=== PATIENT | female | born 1990 | race Two or more races ===

== ENCOUNTER 2017-01-13 13:38 | Emergency (ER) | payer OTHER ==
--- NOTE | ~2017-01-13 | CR63 ---
[facility]. [facility] A Service of [facility] & [facility] RADIOLOGY TEXT RESULTS PATIENT: OPHELIA PRESTON LOCATION: SED : [birth year] UNIT #: [id number] AGE: [address]: Nancy Quezada APRN SEX: F ORDER DR: [id number] [address] [address] [id number] MR#: [id number] Acc #: [id number] NAME: OPHELIA PRESTON : 1990 SEX: F STUDY DATE/TIME: 01/13/2017 13:34 UNIT: SED ROOM: STUDY DESCRIPTION: CR Chest 2 View Attending Physician: Nanyc Quezada A.P.R.N. Ordering Physician: Nancy Quezada A.P.R.N. Primary Care Physician: Tim Barraza M.D. MEDICAL IMAGING REPORT This report is preliminary unless electronic signature is present. EXAM PA and lateral radiograph of the chest, 01/13/17. HISTORY Cough, sinus congestion, ears stopped up one week duration. FINDINGS PA and lateral radiographs of the chest are presented. No comparisons. Heart and mediastinum are within normal limits in size and contour. The lungs are well inflated. There are some patchy linear densities at the left lung base adjacent to the diaphragm. This may represent atelectasis or mild pneumonitis. There is no dense airspace disease. No pleural effusion or pneumothorax and no suspicious nodule. The visualized bony structures unremarkable. Visualized upper abdomen unremarkable. Dictated by... Johnson Nieto M.D. THIS IS AN ELECTRONICALLY VERIFIED REPORT Johnson Nieto M.D. at 01/18/2017 6:37 PM CRISTINE/corrina TD: 01/13/2017 14:24 JOB #: [id number] MEDICAL IMAGING REPORT Page 1 of 1
[~2017-01-13 13:38] MED LIST: BACTRIM DS TABL1 TA1 PO; DELTASONE20 MG PO; DIFLUCAN PO; ERYTHROMYC3.5 GM OPT OS; FLAGYL250 M1 PO; HYDROCODON-ACE1 EAC7 PO; KEFLEX PO; MEDROL4 MG/DOSE- PO; NO MEDICATIONS; ROBAXIN500 MG PO; VICODIN 5/500 T1 TAB PO; VOLTAREN50 MG PO; VOLTAREN75 MG PO; ZIAGEN300 M1
[2017-01-13 14:01] LABS: INFLUENZA A NEG (NEG); INFLUENZA B NEG (NEG)
== END 2017-01-13 14:23 | disposition home or self-care (01) ==
LOC: SED 13:38
PROVIDERS: Nurse Practitioner
DX: J18.9 Pneumonia, unspecified organism (principal); H66.92 Otitis media, unspecified, left ear; F17.200 Nicotine dependence, unspecified, uncomplicated; Z87.39 Personal history of other diseases of the musculoskeletal system and connective tissue
CPT/HCPCS: 71020; 87651; 87804; 99283